=== PATIENT | male | born 1985 ===

== ENCOUNTER 2019-11-06 08:43 | Emergency (ER) | payer BC, SELFPAY ==
--- NOTE | ~2019-11-06 | XR_ITS ---
EXAMINATION: XR foot LT min 3V EXAM DATE: 11/06/2019 09:40 INDICATION: No known recent injury provided at this time. Pain of the left foot, great toe. TECHNIQUE: Left foot dorsoplantar, lateral and oblique projections obtained and reviewed. There is n o prior study for comparison. FINDINGS: 1st digit is unremarkable. Left metatarsal bones unremarkable. There are no bony erosions identified. No periosteal reaction or band of sclerosis to suggest subacute stress fracture. There a re no acute fractures or dislocations identified. There is no subcutaneous gas. The soft tissue is unremarkable. There are no radiopaque foreign bodies. IMPRESSION: 1. Unremarkable XR foot LT min 3V exam. Reviewed, dictated and finalized at location B.
[2019-11-06 09:06] VITALS: BP 147/102; PULSE 86; RESP 16; TEMP 37.2; O2SAT 99
--- NOTE | 2019-11-06 09:17 | ED.GENADULT ---
HPI - General Adult General Chief complaint: Extremity Injury, Lower Stated complaint: left 1 digit toe Time Seen by Provider: 11/06/19 09:17 Source: patient and RN notes reviewed Limitations: no limitations History of Present Illness HPI narrative: 34-year-old male presents today with complaints of ball of left foot pain and stiffness for 1 day. Increase throughout the day yesterday with walking and applying pressure. Ibuprofen 600mg, last at midnight on 11/06/19 without relief. No known injury. Has been walking a lot at work and playing golf. Hurts to bear weight. No radiation of pain. No numbness, tingling, or loss of mobility. Exacerbating factor applying weight. Denies inability to bear weight. Denies discoloration. Denies suspect foreign body. Denies fever or chills. The patient reports he have not been diagnosed with COVID-19. The patient reports he is not waiting for the results of a COVID-19 lab test. The patient reports he do not have fever, chills, weakness, or fatigue. The patient reports he do not have a new or worsening cough or shortness of breath. Denies chest pain. The patient reports he do not have any rhinorrhea, congestion, sore throat, loss of taste, nausea, vomiting, abdominal pain, and diarrhea. Tolerating po intake well. Denies recent traveling. Denies concerns for COVID-19 or exposures been home with limited outdoor exposure except for essential household needs, work, and return home. At this time, patient is not suspected of having COVID-19. Some parts of this dictation were generated by voice recognition software and may contain typographical and/or grammatical inaccuracies. Related Data Home Medications Medication Instructions Recorded Confirmed propranolol 60 mg PO Q12H 11/06/19 11/06/19 Allergies Allergy/AdvReac Type Severity Reaction Status Date / Time No Known Allergies Allergy Mild Verified 11/06/19 09:05 Review of Systems Review of Systems: Narrative: CONSTITUTIONAL: Denies fever, chills, sweats. EYES: Denies visual changes, redness, discharge. ENT: Denies rhinorrhea, congestion, sore throat, otalgia. CARDIOVASCULAR: Denies chest pain, palpitations, edema. RESPIRATORY: Denies dyspnea, wheezing, cough. GASTROINTESTINAL: Denies abdominal pain, nausea, vomiting, diarrhea. GENITOURINARY: Denies dysuria, hematuria, abnormal discharge. SKIN: Denies rash or itching. MUSCULOSKELETAL: Denies acute back pain or myalgia. Complains of ball of left foot pain. NEUROLOGIC: Denies numbness or focal weakness. PSYCHIATRIC: Denies anxiety or depression. All other systems reviewed are negative, except as documented in HPI and below. [facility] Past Medical History Medical History (Updated 11/06/19 @ 10:04 by LINDSAY Cosby) Anxiety Closed right ankle fracture Hypertension Surgical History Surgical History (Updated 11/06/19 @ 09:34 by LINDSAY Cosby) No significant past surgical history Family History Family History (Updated 11/06/19 @ 09:35 by LINDSAY Cosby) Father Hypertension Mother Alive and well Social History Social History (Updated 11/06/19 @ 09:35 by LINDSAY Cosby) Smoking status: Never smoker Tobacco type: cigarettes Second hand tobacco smoke exposure: No Alcohol intake: current Substance use: never Living arrangements: with family Occupation/Education: occupation Gender identity (if verbalized by the patient): Male Comments At time of signature, agree with nurse past medical, surgical, social, and family history. There is no relevant family history pertinent to the presenting complaint. Exam Narrative: Exam Narrative: GENERAL: This is a well-nourished, well-developed patient, in no apparent distress. Ambulates with a limp favoring left lower extremity. HEAD: normocephalic, atraumatic. EYES: PERRL. Sclera clear/white. Vision is grossly intact. CARDIOVASCULAR: Regular rate and rhythm without murm
[2019-11-06] MEDS: KETOROLAC (*BKC) 60 MG/2 ML VIAL IM (09:29)
== END 2019-11-06 10:12 | disposition home or self-care (01) ==
PROVIDERS: Emergency Provider Nurse Practitioner Family
DX: M77.42 Metatarsalgia, left foot (principal); I10 Essential (primary) hypertension
CPT/HCPCS: 73630; 96372; 99213; G0463; J1885